=== PATIENT | male | born 1945 | race Caucasian/White ===

== ENCOUNTER 2018-05-14 20:28 | Emergency (ER) | payer OTHER ==
[2018-05-14 20:43] VITALS: TEMP 98.6; BMI 32.1
--- NOTE | 2018-05-14 21:49 | PDOC ---
History of Present Illness - History of Present Illness Initial Comments: This patient is a 72 year old male with PMHx of HTN (compliant with meds), COPD , CAD s/p 5 cardiac stents, who presents to the ER after being referred from urgent care due to elevated blood pressure. Patient states that he began experiencing a nose bleed so he was seen at [facility] where he was given a nasal spray to help clot the blood and stop the bleeding. They noted his pressure was high and referred him to the ER. Patient states that he has had nose bleeds all his life but has not had one in years. He states that he initially had a nosebleed in the early afternoon that eventually stopped but then came back which prompted him to go to the ER. He states that he had a nuclear stress test a couple months ago that came back normal. Denies any recent dietary changes . Denies any trauma to the head or face. Denies recent changes in medications. Denies any chest pain or pressure, shortness of breath, nausea, vomiting, abdominal pain, light headed or dizziness. Surgical Hx: 5 cardiac stents. <Charity Joshua - Last Filed: 05/14/18 21:57> <Tory Gonzales - Last Filed: 05/15/18 03:10> - General Chief Complaint: Blood Pressure Problem Stated Complaint: HTN Time Seen by Provider: 05/14/18 20:47 Past History <Charity Joshua - Last Filed: 05/14/18 21:57> - Past Medical History Cardiac Disorders: Yes COPD: No HTN: Yes - Surgical History Cardiac Surgery: Yes (STENTS) - Suicide/Smoking/Psychosocial Hx Smoking History: Never smoked Have you smoked in the past 12 months: No Information on smoking cessation initiated: No <Tory Gonzales - Last Filed: 05/15/18 03:10> - Past Medical History Allergies/Adverse Reactions: Allergies Allergy/AdvReac Type Severity Reaction Status Date / Time No Known Allergies Allergy Unverified 05/14/18 20:30 Home Medications: Ambulatory Orders Amlodipine Besylate 5 mg PO DAILY 05/14/18 Lisinopril 10 mg PO HS 05/14/18 Lisinopril/Hydrochlorothiazide [Lisinopril-Hctz 20-12.5 mg Tab] 1 each PO AM 03/23 Montelukast Sodium [Singulair] 10 mg PO HS 05/14/18 Review of Systems - Review of Systems Comments:: GENERAL/CONSTITUTIONAL: No fever or chills. No weakness. HEAD, EYES, EARS, NOSE AND THROAT: +epistaxis. No change in vision. No ear pain or discharge. No sore throat. CARDIOVASCULAR: No chest pain or shortness of breath. RESPIRATORY: No cough, wheezing, or hemoptysis. GASTROINTESTINAL: No nausea, vomiting, diarrhea or constipation. GENITOURINARY: No dysuria, frequency, or change in urination. MUSCULOSKELETAL: No joint or muscle swelling or pain. No neck or back pain. SKIN: No rash NEUROLOGIC: No headache, vertigo, loss of consciousness, or change in strength/ sensation. ENDOCRINE: No increased thirst. No abnormal weight change. HEMATOLOGIC/LYMPHATIC: No anemia, easy bleeding, or history of blood clots. ALLERGIC/IMMUNOLOGIC: No hives or skin allergy. <Charity Joshua - Last Filed: 05/14/18 21:57> *Physical Exam - Vital Signs Last Vital Signs Temp Pulse Resp BP Pulse Ox 98.6 F 71 16 199/99 H 98 05/14/18 20:37 05/14/18 21:32 05/14/18 20:37 05/14/18 21:32 05/14/18 20:37 - Physical Exam Comments: GENERAL: Awake, alert, and fully oriented, in no acute distress HEAD: No signs of trauma EYES: PERRLA, EOMI, sclera anicteric, conjunctiva clear ENT: Auricles normal inspection, hearing grossly normal, Mild amount of clotted blood b/l naris R>L. oropharynx clear without exudates. Moist mucosa NECK: Normal ROM, supple, no lymphadenopathy, JVD, or masses LUNGS: Breath sounds equal, clear to auscultation bilaterally. No wheezes, and no crackles HEART: Regular rate and rhythm, normal S1 and S2, no murmurs, rubs or gallops ABDOMEN: Soft, nontender, normoactive bowel sounds. No guarding, no rebound. No masses EXTREMITIES: Normal range of motion, no edema. No clubbing or cyanosis. No cords, erythema, or tenderness NEUROLOGICAL: Cranial nerves II through XII grossly intact. Normal speech, normal gait SKIN: Warm, Dry, normal turgor, no rashes or lesions noted. <Charity Joshua - Last Filed: 05/14/18 21:57> - Vital Signs Last Vital Signs Temp Pulse Resp BP Pulse Ox 98.6 F 71 16 199/99 H 98 05/14/18 20:37 05/14/18 21:32 05/14/18 20:37 05/14/18 21:32 05/14/18 20:37 <Tory Gonzales - Last Filed: 05/15/18 03:10> ED Treatment Course - Medications Given in the ED: ED Medications Discontinued Medications Generic Name Dose Route Start Last Admin Trade Name Arlyn PRN Reason Stop Dose Admin Amlodipine Besylate 10 mg 05/14/18 21:52 05/14/18 21:56 Norvasc - PO 05/14/18 21:53 10 mg ONCE ONE Administration <Charity Joshua - Last Filed: 05/14/18 21:57> - LABORATORY CBC & Chemistry Diagram: 05/14/18 22:10 05/14/18 22:10 <Tory Gonzales - Last Filed: 05/15/18 03:10> Medical Decision Making - Medical Decision Making Documentation has been prepared under my direction and personally reviewed by me in its entirety. I attest that this documented accurately reflects all work, treatment, procedures and medical decision making performed by me. As noted above, this 72-year-old man with a history of hypertension and coronary artery disease was referred here from urgent care center after he was found to have significantly elevated blood pressure. Patient had gone to urgent care after he had a persistent epistaxis. Nasal bleed was controlled at the urgent care; oxymetazoline (Afrin) nasal spray was used as part of treatment. No packing of the nose was performed. At the end of the visit, blood pressure was measured and found to be high and patient was referred to ER. On presentation here, patient's blood pressure was in the 200/100 range. 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 He denies chest pain/ pressure or shortness of breath. He states that he has been taking his medication as prescribed although he did not take his amlodipine today. Exam as noted. CBC/chemistry profile/cardiac panel drawn and 12-lead electrocardiogram was performed. Twelve-lead electrocardiogram interpreted by me: Normal sinus rhythm at 67 bpm, there is left axis deviation but no abnormalities of wave forms or intervals. No evidence of acute ST or T-wave abnormalities. No evidence of cardiac arrhythmia. CBC and chemistry profile is essentially unremarkable (mild prerenal azotemia with BUN of 29 and creatinine is 1.1) troponin is not elevated at 0.04. Results discussed with the patient. The patient admitted that he had not taken his amlodipine for approximately a week because he has significant fatigue as a side effect of taking this medication. Patient was given a double dose (10 mg of amlodipine) Blood pressure retaken after approximately one hour: Reading is comparable at 200/105 It is likely that the combination of use of vasoconstrictor nasal spray tonight as well as patient's noncompliance with amlodipine has resulted in patients BP to be elevated persistently. Patient given clonidine 0.2 mg by mouth. After approximately 1 hour, the patient's blood pressure has decreased to 158/ 99. Although this is not optimal BP, clonidine effect will peak in another 2-3 hours as well as the side effect of oxymetazoline decreasing during this time. Since patient is asymptomatic and no further nose bleed has occurred, the patient will be discharged with instructions to continue his medication, including amlodipine, as prescribed. He will not use Afrin spray or other vasoconstrictor medications. If he has any further epistaxis, he should firmly pinch his nostrils just above the nares for 10-15 minutes and return here (or nearest medical facility if traveling) for evaluation if bleeding persists. The patient has already contacted his media producer and plans to follow up with him on Thursday, May 17. <Tory Gonzales - Last Filed: 05/15/18 03:10> *DC/Admit/Observation/Transfer - Attestations Scribe Attestion: 05/14/18 21:59 Documentation prepared by Charity Joshua, acting as medical laboratory manager for Tory Gonzales MD. <Charity Joshua - Last Filed: 05/14/18 21:57> <Tory Gonzales - Last Filed: 05/15/18 03:10> Diagnosis at time of Disposition: History of epistaxis Hypertension Qualifiers: Hypertension type: unspecified Qualified Code(s): I10 - Essential (primary) hypertension - Discharge Dispostion Disposition: HOME Condition at time of disposition: Stable - Referrals Referrals: Damion Sarmiento [Primary Care Provider] - - Patient Instructions Printed Discharge Instructions: DI for High Blood Pressure Additional Instructions: continue medications, including amlodipine, as prescribed Avoid use of Afrin nasal spray Elevate head as much as possible and avoid direct warmth to the face If nosebleed recurs, pinch nostrils together for 10-15 minutes Return to ER or nearest medical facility if nosebleed persists for more than 15 minutes Follow-up with your media producer on May 17 as scheduled - Post Discharge Activity
[2018-05-14 21:52] VITALS: PULSE 71
[2018-05-14] MEDS ORDERED: amLODIPine BESYLATE 10 MG TABLET (FP) PO ONE (21:52)
[2018-05-14] MEDS ORDERED: amLODIPine BESYLATE 5 MG TABLET (FP) ONE (21:54)
[2018-05-14 22:18] LABS: BASO % 2.4 % (0-2.0); EOS % 1.8 % (0-4.5); HEMATOCRIT 45.1 % (35.4-49); HEMOGLOBIN 14.9 GM/dl (11.7-16.9); LYMPH % 21.3 % (8-40); MCH 28.8 pg (25.7-33.7); MCHC 33.2 g/dl (32.0-35.9); MEAN CELL VOLUME 86.9 fl (80-96); MEAN PLT VOLUME 8.8 fl (7.5-11.1); MONO % 6.5 % (3.8-10.2); PLATELET COUNT 244 K/MM3 (134-434); RBC 5.19 M/mm3 (4.00-5.60); RDW 13.1 % (11.9-15.9); WHITE BLOOD COUNT 9.8 K/mm3 (4.0-10.8)
[2018-05-14 22:40] LABS: BLOOD UREA NITROGEN 29 mg/dl (7-18); CREATININE 1.1 mg/dl (0.6-1.3); GLUCOSE,RANDOM 104 mg/dl (74-106)
[2018-05-14 22:41] LABS: ALBUMIN 4.2 g/dl (3.5-5.0); ALK PHOS 85 U/L (32-92); ANION GAP 5 MMOL/L (8-16); BILIRUBIN,TOTAL 0.8 mg/dl (0.2-1.0); CALCIUM 9.4 mg/dl (8.4-10.2); CHLORIDE 104 mmol/L (98-107); SGOT/AST 28 U/L (10-42); SGPT/ALT 29 U/L (10-40); SODIUM 136 mmol/L (136-145); TOT PROT 6.8 g/dl (6.4-8.3)
[2018-05-14] MEDS ORDERED: cloNIDine HCL 0.1 MG TABLET PO ONE (23:20)
[2018-05-14] MEDS ORDERED: cloNIDine HCL 0.1 MG TABLET ONE (23:21)
[2018-05-15 00:21] VITALS: BP 159/98
--- NOTE | 2018-05-16 19:22 | EKG ---
Test Reason : Blood Pressure : / mmHG Vent. Rate : 067 BPM Atrial Rate : 067 BPM P-R Int : 132 ms QRS Dur : 098 ms QT Int : 416 ms P-R-T Axes : 048 -30 016 degrees QTc Int : 439 ms NORMAL SINUS RHYTHM LEFT AXIS DEVIATION ABNORMAL ECG WHEN COMPARED WITH ECG OF 05-JUN-2009 14:44, NO SIGNIFICANT CHANGE WAS FOUND Confirmed by COSTA LEROY MD ([id number]) on 05/16/2018 7:21:52 PM Referred By: MD JOHNSTON Confirmed By:COSTA LEROY MD
[2018-05-17 07:30] LABS: CO2 27 mmol/L (22-28)
== END 2018-05-15 00:31 | disposition home or self-care (01) ==
LOC: FER 20:28
DX: I10 Essential (primary) hypertension (principal); R04.0 Epistaxis; I25.10 Atherosclerotic heart disease of native coronary artery without angina pectoris
CPT/HCPCS: 36415; 80053; 82550; 82553; 84484; 85025; 93005; 99282-25; J0735